=== PATIENT | female | born 1985 | race Caucasian/White ===

== ENCOUNTER 2018-04-03 14:49 | Emergency (ER) | payer MEDICAID ==
[~2018-04-03] VITALS: Ht 172.7 cm; Wt 88.0 kg
[~2018-04-03 14:49] MED LIST: CLIN-26 PO
[2018-04-03 15:07] VITALS: BP 135/91
[2018-04-03] MEDS ORDERED: CIPR2.5D18 EACHEYE (15:48)
== END 2018-04-03 16:00 | disposition home or self-care (01) ==
LOC: ER 14:49
DX: H10.89 Other conjunctivitis (principal); Z88.2 Allergy status to sulfonamides; Z79.2 Long term (current) use of antibiotics
CPT/HCPCS: 99283

== ENCOUNTER 2022-08-09 16:11 | Emergency (ER) | payer MEDICAID ==
[~2022-08-09] VITALS: Ht 172.7 cm; Wt 77.0 kg
[2022-08-09 16:24] VITALS: BP 140/96
== END 2022-08-09 19:37 | disposition left against medical advice (07) ==
LOC: ER 16:12
DX: J00 Acute nasopharyngitis [common cold] (principal); R05.9 Cough, unspecified; R09.89 Other specified symptoms and signs involving the circulatory and respiratory systems; Z53.21 Procedure and treatment not carried out due to patient leaving prior to being seen by health care provider

== ENCOUNTER 2022-08-11 09:34 | Emergency (ER) | payer MEDICAID ==
[~2022-08-11] VITALS: Ht 172.7 cm; Wt 77.3 kg
[2022-08-11 09:53] VITALS: BP 126/82
[2022-08-11] MEDS ORDERED: PRED20TA PO (10:45)
[2022-08-11] MEDS ORDERED: AMOX-117 PO (10:45)
[2022-08-11] MEDS ORDERED: ALBU6.7H14 INH (10:45)
== END 2022-08-11 11:10 | disposition home or self-care (01) ==
LOC: ER 09:34
DX: J40 Bronchitis, not specified as acute or chronic (principal); Z20.822 Contact with and (suspected) exposure to COVID-19; Z88.2 Allergy status to sulfonamides
CPT/HCPCS: 71046; 87635; 99284; C9803